=== PATIENT | female | born 1930 | race Caucasian/White ===

== ENCOUNTER 2017-03-11 09:34 | Emergency (ER) | payer MEDICARE ==
[~2017-03-11] VITALS: Ht 154.9 cm; Wt 53.6 kg
[~2017-03-11 09:34] MED LIST: ARICEPT10 MG PO; PERCOCET 325 MG1 TA2 PO; TIMOPTIC 0.5%-10 OU
[2017-03-11 09:38] VITALS: BP 129/64; PULSE 69; TEMP 99.1
[2017-03-11] MEDS ORDERED: PERCOCET 325 MG1 TA2 PO (13:38)
== END 2017-03-11 15:05 | disposition home or self-care (01) ==
LOC: COL.ER 09:34
DX: S32.10XA Unspecified fracture of sacrum, initial encounter for closed fracture (principal); G30.9 Alzheimer's disease, unspecified; F02.80 Dementia in other diseases classified elsewhere, unspecified severity, without behavioral disturbance, psychotic disturbance, mood disturbance, and anxiety; W19.XXXA Unspecified fall, initial encounter

== ENCOUNTER 2017-03-13 09:01 | Observation (INO) | payer MEDICARE ==
[~2017-03-13] VITALS: Ht 154.9 cm; Wt 53.6 kg
[2017-03-13 09:35] VITALS: BP 160/56; TEMP 98.4
[2017-03-13 13:03] LABS: BASO % 0.3 % (0.0-2.0); EOS # 0.1 (0.0-0.7); EOS % 1.8 % (0-4.0); GRAN # 5.9 (1.4-6.5); GRAN % 81.1 % (42.2-75.2); HEMATOCRIT 32.5 % (37.0-47.0); LYMPH # 0.7 (1.2-3.4); LYMPH % 9.2 % (20.0-51.0); MEAN CELL VOLUME 92 fl (80.0-100.0); MEAN CORPUSCULAR HEMOGLOBIN 31 pg (27.0-31.0); MEAN CORPUSCULAR HGB CONC 34 g/dl (33.0-37.0); MEAN PLATELET VOLUME 9.6 fl (7.4-10.4); MONO # 0.5 (0.1-0.6); MONO % 7.2 % (1.7-9.3); PLATELET COUNT 209 K/mm3 (130-400); RED BLOOD COUNT 3.54 M/mm3 (4.10-5.30); REDCELL DISTRIBUTION WIDTH-CV 12.2 % (11.5-14.5); WHITE BLOOD COUNT 7.3 K/mm3 (4.8-10.8)
[2017-03-13 13:12] LABS: ADJUSTED CALCIUM 9.1 mg/dL (8.4-10.2); ALBUMIN 3.4 gm/dL (3.5-5.0); BILIRUBIN,TOTAL 1.1 mg/dL (0.0-1.0); CALCIUM 8.6 mg/dL (8.4-10.2); CREATININE, serum 0.96 mg/dL (0.52-1.25); POTASSIUM 3.5 mmol/L (3.4-5.0); TOTAL PROTEIN 6.5 gm/dL (6.4-8.2)
[2017-03-13 15:16] LABS: PH 5 (5-8); SQUAMOUS EPITHELIAL 0-2 /hpf; URINE APPEARANCE Hazy; URINE BACTERIA None Seen /hpf; URINE BILIRUBIN Negative (NEGATIVE); URINE BLOOD 1+ (NEGATIVE); URINE COLOR Yellow; URINE GLUCOSE Negative (NEGATIVE); URINE KETONE Trace (NEGATIVE); URINE UROBILINOGEN Negative (NEGATIVE)
[2017-03-13 16:01] LABS: INR 1.1 (0.8-3.0); PROTHROMBIN TIME 11.8 SECONDS (9.7-12.8)
[2017-03-13 17:43] VITALS: BP 122/44; PULSE 93; TEMP 97.6
[2017-03-13 20:01] VITALS: BP 143/45; PULSE 101; TEMP 97.8
[2017-03-13 23:27] VITALS: BP 140/48; PULSE 102; TEMP 98.4
[2017-03-14] VITALS (10 sets, daily range): BP systolic 127–145; BP diastolic 44–73; PULSE 66–85; TEMP 97.6–98.8
[2017-03-14] MEDS ORDERED: NEURONTIN100 MG/CAP PO (15:02)
== END 2017-03-14 16:30 | disposition home or self-care (01) ==
LOC: MEDICAL 09:01
PROVIDERS: Nurse Practitioner Family
DX: M80.08XA Age-related osteoporosis with current pathological fracture, vertebra(e), initial encounter for fracture (principal); W18.30XA Fall on same level, unspecified, initial encounter; K59.00 Constipation, unspecified; E78.5 Hyperlipidemia, unspecified; R32 Unspecified urinary incontinence; F03.90 Unspecified dementia, unspecified severity, without behavioral disturbance, psychotic disturbance, mood disturbance, and anxiety; M19.90 Unspecified osteoarthritis, unspecified site; Z66 Do not resuscitate
CPT/HCPCS: C1713; G0378; G8978-GP; G8979-GP; J3010

== ENCOUNTER 2017-09-28 10:57 | Emergency (ER) | payer MEDICARE ==
[~2017-09-28] VITALS: Ht 154.9 cm; Wt 50.0 kg
[~2017-09-28 10:57] MED LIST changes: +NEURONTIN100 MG/CAP PO
[2017-09-28 11:00] VITALS: TEMP 97
[2017-09-28 11:40] LABS: BASO % 0.4 % (0.0-2.0); EOS # 0.1 (0.0-0.7); EOS % 2.7 % (0-4.0); GRAN # 2.5 (1.4-6.5); GRAN % 56.3 % (42.2-75.2); LYMPH # 1.4 (1.2-3.4); LYMPH % 30.6 % (20.0-51.0); MEAN CELL VOLUME 99 fl (80.0-100.0); MEAN CORPUSCULAR HGB CONC 33 g/dl (33.0-37.0); MEAN PLATELET VOLUME 9.4 fl (7.4-10.4); MONO # 0.4 (0.1-0.6); MONO % 9.8 % (1.7-9.3); PLATELET COUNT 189 K/mm3 (130-400); RED BLOOD COUNT 3.56 M/mm3 (4.10-5.30); REDCELL DISTRIBUTION WIDTH-CV 12.8 % (11.5-14.5)
[2017-09-28 11:41] LABS: HEMATOCRIT 35.1 % (37.0-47.0); HEMOGLOBIN 11.4 g/dl (12.5-16.0); MEAN CORPUSCULAR HEMOGLOBIN 32 pg (27.0-31.0)
[2017-09-28 12:00] LABS: ALBUMIN 3.6 gm/dL (3.5-5.0); BILIRUBIN,TOTAL 0.6 mg/dL (0.0-1.0); CALCIUM 8.9 mg/dL (8.4-10.2); CREATININE, serum 0.9 mg/dL (0.52-1.25); POTASSIUM 3.9 mmol/L (3.4-5.0); TOTAL PROTEIN 6.6 gm/dL (6.4-8.2)
[2017-09-28 13:56] VITALS: BP 122/46; PULSE 62
== END 2017-09-28 14:23 | disposition home or self-care (01) ==
LOC: COL.ER 10:57
PROVIDERS: Family Medicine
DX: S00.93XA Contusion of unspecified part of head, initial encounter (principal); S70.02XA Contusion of left hip, initial encounter; G30.9 Alzheimer's disease, unspecified; F02.80 Dementia in other diseases classified elsewhere, unspecified severity, without behavioral disturbance, psychotic disturbance, mood disturbance, and anxiety; W18.30XA Fall on same level, unspecified, initial encounter
CPT/HCPCS: J3010

== ENCOUNTER → 2018-02-27 | Outpatient (CLI) | payer MEDICARE ==
[2018-02-27 12:39] LABS: BASO % 0.2 % (0.0-2.0); EOS # 0.1 (0.0-0.7); EOS % 2.8 % (0-4.0); GRAN % 46.7 % (42.2-75.2); HEMOGLOBIN 11.3 g/dl (12.5-16.0); LYMPH # 1.8 (1.2-3.4); LYMPH % 41.2 % (20.0-51.0); MEAN CELL VOLUME 97 fl (80.0-100.0); MEAN CORPUSCULAR HEMOGLOBIN 32 pg (27.0-31.0); MEAN CORPUSCULAR HGB CONC 33 g/dl (33.0-37.0); MONO # 0.4 (0.1-0.6); MONO % 8.9 % (1.7-9.3); PLATELET COUNT 214 K/mm3 (130-400); RED BLOOD COUNT 3.53 M/mm3 (4.10-5.30); REDCELL DISTRIBUTION WIDTH-CV 12.5 % (11.5-14.5)
[2018-02-27 12:40] LABS: HEMATOCRIT 34.1 % (37.0-47.0)
[2018-02-27 12:59] LABS: ALBUMIN 3.5 gm/dL (3.5-5.0); BILIRUBIN,TOTAL 0.5 mg/dL (0.0-1.0); CHOLESTEROL RISK RATIO 4.1; CREATININE, serum 0.8 mg/dL (0.52-1.25); TOTAL PROTEIN 6.3 gm/dL (6.4-8.2)
[2018-02-27 13:29] LABS: THYROID STIMULATING HORMONE 1.55 uIU/mL (0.465-4.680)
== END ==
LOC: ZCOL.LAB 12:33
PROVIDERS: Internal Medicine
DX: R53.81 Other malaise (principal); G30.1 Alzheimer's disease with late onset; E78.5 Hyperlipidemia, unspecified